=== PATIENT | female | born 1970 | race Caucasian/White ===

== ENCOUNTER 2018-11-25 13:59 | Inpatient (IN) | payer MEDICAID ==
[2018-11-25 17:21] LABS: ADD MAN DIFF? NO
[2018-11-25 17:23] LABS: URINE BLOOD (Dip) POC 3+ (NEGATIVE); URINE GLUCOSE (Dip) POC Negative (NEGATIVE); URINE KETONES (Dip) POC Trace (NEGATIVE); URINE LEUKOCYTE EST (Dip) POC Trace (NEGATIVE); URINE NITRITE (Dip) POC Negative (NEGATIVE); URINE TOTAL PROTEIN POC Trace (NEGATIVE)
[2018-11-25 17:23] LABS: URINE PH (Dip) POC 6.5 (5.0-8.5)
[2018-11-25 17:31] LABS: BASOPHIL # 0.1 10^3/ul (0.0-0.1); BASOPHILS % 0.6 % (0.0-2.0); EOSINOPHILS # 0.5 10^3/ul (0.0-0.5); EOSINOPHILS % 3.9 % (0.0-7.0); HEMATOCRIT 40.6 % (37.0-47.0); HEMOGLOBIN 13.5 g/dl (12.0-16.0); LYMPHOCYTES # 2.9 10^3/ul (0.8-2.9); LYMPHOCYTES % 24.7 % (15.0-51.0); MEAN CORPUSCULAR HGB CONC 33.3 g/dl (32.0-37.0); MEAN CORPUSCULAR VOLUME 84.2 fl (82.0-101.0); MEAN PLATELET VOLUME 8.5 fl (7.4-10.4); MONOCYTES % 8.8 % (0.0-11.0); NEUTROPHIL # 7.3 10^3/ul (1.6-7.5); NEUTROPHILS % 61.7 % (39.0-77.0); PLATELET COUNT 362 10^3/UL (140-415); RED BLOOD COUNT 4.82 10^6/ul (4.20-5.40)
[2018-11-25 17:31] LABS: WHITE BLOOD COUNT 11.8 10^3/ul (4.8-10.8)
[2018-11-25] MEDS: KETOROLAC 30 MG INJ IV (17:43)
[2018-11-25 18:04] LABS: ALANINE AMINOTRANSFERASE 72 IU/L (13-69); ALBUMIN 4.1 g/dl (3.3-4.9); ALBUMIN/GLOBULIN RATIO 0.97; ALKALINE PHOSPHATASE 191 IU/L (42-121); ANION GAP 11 (5-13); ASPARTATE AMINO TRANSFERASE 58 IU/L (15-46); BILIRUBIN,INDIRECT 0.3 mg/dl (0-1.1); BILIRUBIN,TOTAL 0.3 mg/dl (0.2-1.3); BLOOD UREA NITROGEN 19 mg/dl (7-20); CALCIUM 10.2 mg/dl (8.4-10.2); CARBON DIOXIDE 27 mmol/L (21-31); CHLORIDE 98 mmol/L (97-110); CREATININE 0.87 mg/dl (0.44-1.00); Estimated GFR > 60 mL/min (>60); GLUCOSE 86 mg/dl (70-220); LIPASE 1254 U/L (23-300); POTASSIUM 4.2 mmol/L (3.5-5.1); SODIUM 136 mmol/L (135-144); TOTAL PROTEIN 8.3 g/dl (6.1-8.1)
[2018-11-25] MEDS: HYDROmorphONE 0.5 MG/0.5 ML SYG IV (19:52)
[2018-11-26] MEDS ORDERED: ALBUTEROL/IPRATROPIUM (NEB) 3 ML AMP HHN (00:30)
[2018-11-26] MEDS ORDERED: NACL 0.9% 3 ML SYG IV (00:30)
[2018-11-26] MEDS: ONDANSETRON 4 MG INJ IV ×2 (00:58→17:36)
[2018-11-26] MEDS ORDERED: GLUCAGON 1 MG INJ IM (01:00)
[2018-11-26] MEDS ORDERED: GLUCOSE GEL 15 GRAM TUBE PO ×2 (01:00)
[2018-11-26] MEDS ORDERED: GLUCOSE GEL 15 GRAM TUBE BUCCAL (01:00)
[2018-11-26] MEDS ORDERED: DEXTROSE 50% 50 ML SYRINGE IV ×2 (01:00)
[2018-11-26] MEDS: CEFTRIAXONE 1 GM/50 ML (PMX) 50 ML IVPB ×2 (01:14→08:54)
[2018-11-26] MEDS: SOD CHLORIDE 0.9% 1,000 ML IV ×3 (01:15→20:45)
[2018-11-26] MEDS: ACCU-CHEK XX (02:23)
[2018-11-26] MEDS: TAMSULOSIN (SR) 0.4 MG CAP PO ×3 (02:25→20:47)
[2018-11-26] MEDS: POTASSIUM CHLORIDE (SR) 20 MEQ TAB PO (02:25)
[2018-11-26 05:40] LABS: ADD MAN DIFF? NO
[2018-11-26 05:49] LABS: BASOPHIL # 0.1 10^3/ul (0.0-0.1); BASOPHILS % 0.6 % (0.0-2.0); EOSINOPHILS # 0.1 10^3/ul (0.0-0.5); EOSINOPHILS % 1.1 % (0.0-7.0); HEMATOCRIT 38.9 % (37.0-47.0); HEMOGLOBIN 13.1 g/dl (12.0-16.0); LYMPHOCYTES # 2.3 10^3/ul (0.8-2.9); LYMPHOCYTES % 22.5 % (15.0-51.0); MEAN CORPUSCULAR HEMOGLOBIN 28.3 pg (29.0-33.0); MEAN CORPUSCULAR HGB CONC 33.7 g/dl (32.0-37.0); MONOCYTE # 0.6 10^3/ul (0.3-0.9); MONOCYTES % 5.6 % (0.0-11.0); NEUTROPHIL # 7.1 10^3/ul (1.6-7.5); NEUTROPHILS % 69.8 % (39.0-77.0); PLATELET COUNT 364 10^3/UL (140-415); RED BLOOD COUNT 4.63 10^6/ul (4.20-5.40); RED CELL DISTRIBUTION WIDTH 12.8 % (11.5-14.5)
[2018-11-26 05:49] LABS: WHITE BLOOD COUNT 10.1 10^3/ul (4.8-10.8)
[2018-11-26 06:02] LABS: HEMOGLOBIN A1C 9.4 % (0-5.9)
[2018-11-26 06:15] LABS: ALANINE AMINOTRANSFERASE 65 IU/L (13-69); ALBUMIN 3.8 g/dl (3.3-4.9); ALBUMIN/GLOBULIN RATIO 1.02; ALKALINE PHOSPHATASE 171 IU/L (42-121); ANION GAP 11 (5-13); ASPARTATE AMINO TRANSFERASE 46 IU/L (15-46); BILIRUBIN,INDIRECT 0.4 mg/dl (0-1.1); BILIRUBIN,TOTAL 0.4 mg/dl (0.2-1.3); BLOOD UREA NITROGEN 21 mg/dl (7-20); CALCIUM 9.6 mg/dl (8.4-10.2); CARBON DIOXIDE 25 mmol/L (21-31); CHLORIDE 99 mmol/L (97-110); CREATININE 0.84 mg/dl (0.44-1.00); Estimated GFR > 60 mL/min (>60); GLUCOSE 164 mg/dl (70-220); MAGNESIUM 1.8 mg/dl (1.7-2.5); POTASSIUM 4.7 mmol/L (3.5-5.1); SODIUM 135 mmol/L (135-144); TOTAL PROTEIN 7.5 g/dl (6.1-8.1)
[2018-11-26] MEDS: INSULIN ASPART [NOVOLOG] 3 ML PEN SC ×4 (08:00→20:49)
[2018-11-26] MEDS: ASPIRIN (EC) 81 MG TAB PO (08:54)
[2018-11-26] MEDS: HEPARIN 5,000 UNIT/1 ML VIAL SC ×2 (08:55→20:51)
[2018-11-26] MEDS: LISINOPRIL 5 MG TAB PO (08:55)
[2018-11-26] MEDS: HYDROCODONE/APAP (5/325) TAB PO ×3 (12:44→23:35)
[2018-11-26 14:14] LABS: LIPASE 146 U/L (23-300)
[2018-11-26 14:14] LABS: AMYLASE 77 U/L (11-123)
[2018-11-26] MEDS: ACETAMINOPHEN 325 MG TAB PO (16:10)
[2018-11-27] MEDS: ACCU-CHEK XX (01:22)
[2018-11-27 04:59] LABS: ADD MAN DIFF? NO
[2018-11-27 05:03] LABS: WHITE BLOOD COUNT 9.1 10^3/ul (4.8-10.8)
[2018-11-27 05:03] LABS: BASOPHIL # 0.1 10^3/ul (0.0-0.1); BASOPHILS % 0.6 % (0.0-2.0); EOSINOPHILS # 0.3 10^3/ul (0.0-0.5); EOSINOPHILS % 3.2 % (0.0-7.0); HEMATOCRIT 36.6 % (37.0-47.0); HEMOGLOBIN 12.4 g/dl (12.0-16.0); LYMPHOCYTES # 2.4 10^3/ul (0.8-2.9); LYMPHOCYTES % 26.4 % (15.0-51.0); MEAN CORPUSCULAR HEMOGLOBIN 28.4 pg (29.0-33.0); MEAN CORPUSCULAR HGB CONC 33.9 g/dl (32.0-37.0); MEAN CORPUSCULAR VOLUME 83.9 fl (82.0-101.0); MEAN PLATELET VOLUME 8.7 fl (7.4-10.4); MONOCYTE # 0.8 10^3/ul (0.3-0.9); NEUTROPHIL # 5.5 10^3/ul (1.6-7.5); NEUTROPHILS % 60.6 % (39.0-77.0); PLATELET COUNT 334 10^3/UL (140-415); RED BLOOD COUNT 4.36 10^6/ul (4.20-5.40)
[2018-11-27 05:22] LABS: ANION GAP 8 (5-13); BLOOD UREA NITROGEN 18 mg/dl (7-20); CALCIUM 8.9 mg/dl (8.4-10.2); CARBON DIOXIDE 25 mmol/L (21-31); CHLORIDE 102 mmol/L (97-110); CREATININE 0.87 mg/dl (0.44-1.00); Estimated GFR > 60 mL/min (>60); GLUCOSE 139 mg/dl (70-220); MAGNESIUM 1.9 mg/dl (1.7-2.5); PHOSPHORUS 4.3 mg/dl (2.5-4.9); POTASSIUM 3.9 mmol/L (3.5-5.1); SODIUM 135 mmol/L (135-144)
[2018-11-27] MEDS: SOD CHLORIDE 0.9% 1,000 ML IV ×2 (05:34→16:25)
[2018-11-27] MEDS: INSULIN ASPART [NOVOLOG] 3 ML PEN SC ×4 (07:50→21:00)
[2018-11-27] MEDS: CEFTRIAXONE 1 GM/50 ML (PMX) 50 ML IVPB (08:23)
[2018-11-27] MEDS: ASPIRIN (EC) 81 MG TAB PO (08:23)
[2018-11-27] MEDS: HEPARIN 5,000 UNIT/1 ML VIAL SC ×2 (08:30→21:08)
[2018-11-27] MEDS: LISINOPRIL 5 MG TAB PO (08:30)
[2018-11-27] MEDS ORDERED: MAGNESIUM HYDROXIDE 30ML CUP PO (08:30)
[2018-11-27] MEDS: MAGNESIUM HYDROXIDE 30ML CUP PO (10:03)
[2018-11-27] MEDS ORDERED: BISACODYL (EC) 5 MG TAB PO (15:00)
[2018-11-27] MEDS: TAMSULOSIN (SR) 0.4 MG CAP PO (21:04)
[2018-11-28] MEDS: ACCU-CHEK XX (01:34)
[2018-11-28] MEDS: SOD CHLORIDE 0.9% 1,000 ML IV (01:36)
[2018-11-28 06:55] LABS: ANION GAP 8 (5-13); BLOOD UREA NITROGEN 11 mg/dl (7-20); CALCIUM 9.1 mg/dl (8.4-10.2); CARBON DIOXIDE 27 mmol/L (21-31); CHLORIDE 106 mmol/L (97-110); Estimated GFR > 60 mL/min (>60); GLUCOSE 105 mg/dl (70-220); POTASSIUM 4.1 mmol/L (3.5-5.1); SODIUM 141 mmol/L (135-144)
[2018-11-28] MEDS: INSULIN ASPART [NOVOLOG] 3 ML PEN SC ×2 (07:50→11:40)
[2018-11-28] MEDS: HEPARIN 5,000 UNIT/1 ML VIAL SC (09:00)
[2018-11-28] MEDS: CEFTRIAXONE 1 GM/50 ML (PMX) 50 ML IVPB (09:34)
[2018-11-28] MEDS: ASPIRIN (EC) 81 MG TAB PO (09:34)
[2018-11-28] MEDS: LISINOPRIL 5 MG TAB PO (09:34)
== END 2018-11-28 17:37 | disposition home or self-care (01) | DRG 694 ==
LOC: MS1 19:40 → E/R 13:59
DX: N20.1 Calculus of ureter (principal); N12 Tubulo-interstitial nephritis, not specified as acute or chronic; D64.9 Anemia, unspecified; E11.9 Type 2 diabetes mellitus without complications; I10 Essential (primary) hypertension; K57.30 Diverticulosis of large intestine without perforation or abscess without bleeding; K59.00 Constipation, unspecified; N21.0 Calculus in bladder; Z90.49 Acquired absence of other specified parts of digestive tract; Z79.84 Long term (current) use of oral hypoglycemic drugs; Z79.82 Long term (current) use of aspirin
CPT/HCPCS: 74018; 74176; 80048; 80053; 81003; 81025; 82150; 82962; 83036; 83690; 83735; 84100; 85025; 96374; 99285-25